=== PATIENT | male | born 1940 | race Two or more races ===

== ENCOUNTER → 2018-11-07 12:34 | Outpatient (CLI) | payer OTHER | END | disposition home or self-care (01) | LOC: RAD 12:34 | DX: M79.641 Pain in right hand (principal); M79.642 Pain in left hand ==

== ENCOUNTER 2021-04-11 12:48 | Outpatient (CLI) | payer OTHER | END 2021-04-11 13:05 | disposition home or self-care (01) | LOC: TOM 12:48 | PROVIDERS: ATTEND Internal Medicine Cardiovascular Disease | DX: E78.2 Mixed hyperlipidemia (principal); I71.2 Thoracic aortic aneurysm, without rupture; G47.37 Central sleep apnea in conditions classified elsewhere ==

== ENCOUNTER → 2023-05-22 10:51 | Outpatient (CLI) | payer OTHER ==
[2023-05-22 12:40] LABS: CREATININE SERUM 0.99 mg/dL (0.70-1.30); GFR 72.37
== END | disposition home or self-care (01) ==
LOC: LAB 10:51
PROVIDERS: ATTEND Radiology Diagnostic Radiology
DX: I11.0 Hypertensive heart disease with heart failure (principal); E78.2 Mixed hyperlipidemia

== ENCOUNTER 2023-05-23 09:10 | Outpatient (CLI) | payer OTHER | END 2023-05-23 09:16 | disposition home or self-care (01) | LOC: TOM 09:10 | PROVIDERS: ATTEND Internal Medicine Cardiovascular Disease | DX: I11.0 Hypertensive heart disease with heart failure (principal); E78.2 Mixed hyperlipidemia; I71.20 Thoracic aortic aneurysm, without rupture, unspecified ==